=== PATIENT | male | born 1945 | race Caucasian/White ===

== ENCOUNTER 2021-07-08 12:36 | Observation (INO) | payer MEDICARE ==
[~2021-07-08] VITALS: Ht 180.3 cm; Wt 80.1 kg
[2021-07-08] VITALS (18 sets, daily range): BP systolic 88–153; BP diastolic 47–96
[2021-07-08 13:10] LABS: BASOPHILS % (AUTO) 0.5 % (0.0-5.0); EOSINOPHILS % (AUTO) 0.9 % (0.0-8.0); HEMATOCRIT 43.3 % (42-54); LYMPHOCYTES % (AUTO) 10.1 % (21.0-51.0); MEAN CORPUSCULAR HEMOGLOBIN 31.2 pg (27.0-33.0); MEAN CORPUSCULAR HGB CONC 33.5 g/dL (32.0-36.0); MEAN CORPUSCULAR VOLUME 93.1 fL (79-99); MONOCYTES % (AUTO) 8.4 % (3.0-13.0); NEUTROPHILS % (AUTO) 79.7 % (40.0-77.0); PLATELET COUNT (AUTO) 243 K/uL (130-400); RED BLOOD CELL COUNT(AUTO) 4.65 MIL/uL (4.50-6.20); RED CELL DISTRIBUTION WIDTH 12.7 % (11.0-15.5); WHITE BLOOD COUNT (AUTO) 10.5 K/uL (4.8-10.8)
[2021-07-08 13:17] LABS: POTASSIUM 4.3 mmol/L (3.5-5.1)
[2021-07-08 13:26] LABS: ALBUMIN 4.1 g/dL (3.5-5.0); BILIRUBIN,TOTAL 0.6 mg/dL (0.2-1.0)
[2021-07-08] MEDS ORDERED: GLUCAGON 1MG KIT 1 MG ML IV SCH ×2 (13:30→15:30)
[2021-07-08] MEDS ORDERED: GLUCAGON 1MG KIT 1 MG ML ONE (13:45)
[2021-07-08] MEDS ORDERED: ACETAMINOPHEN 325 MG TAB PO PRN (14:00)
[2021-07-08] MEDS ORDERED: HYDRALAZINE 20MG/ML VIAL IV PRN (14:00)
[2021-07-08] MEDS ORDERED: LABETALOL 20MG SYG IV PRN (14:00)
[2021-07-08] MEDS ORDERED: LACTULOSE 20 GM/30 ML UDCUP PO PRN (14:00)
[2021-07-08] MEDS ORDERED: GLUCAGON 1MG KIT 1 MG ML IM SCH ×2 (14:00)
[2021-07-08] MEDS ORDERED: ONDANSETRON 4MG INJ IVP PRN (14:00)
[2021-07-08] MEDS: INSULIN HUMULIN R 100 UNIT/ML 3ML SQ SCH ×2 (16:30→21:00)
[2021-07-08] MEDS ORDERED: LIDOCAINE PF 100MG/5ML (2%) SYRINGE 5ML ONE (17:23)
[2021-07-08] MEDS ORDERED: SUCCINYLCHOLINE CHLORIDE 20 MG/ML 10 ML VIAL ONE (17:23)
[2021-07-08] MEDS ORDERED: PROPOFOL 10 MG/ML 20ML VIAL IV ONE (17:23)
[2021-07-08] MEDS ORDERED: GLYCOPYRROLATE 1 MG/5 ML SYRINGE ONE (17:24)
[2021-07-08] MEDS ORDERED: DEXAMETHASONE SOD PHOSPHATE 10MG/ML 1ML VIAL ONE (17:24)
[2021-07-08] MEDS ORDERED: FENTANYL CITRATE PF 50 MCG/1 ML 2ML VIAL ONE (17:24)
[2021-07-08] MEDS ORDERED: ONDANSETRON 4MG INJ ONE (17:24)
[2021-07-08] MEDS ORDERED: ROCURONIUM 10MG/1ML SYR 10 MG/ML ML ONE (17:24)
[2021-07-08] MEDS ORDERED: NEOSTIGMINE 5MG/5ML SYR IV ONE (17:24)
[2021-07-08] MEDS ORDERED: MIDAZOLAM HCL 1 MG/ML 2ML VIAL ONE (17:24)
[2021-07-09 04:19] VITALS: BP 119/58
[2021-07-09 04:37] LABS: BASOPHILS % (AUTO) 0.1 % (0.0-5.0); HEMATOCRIT 42.4 % (42-54); LYMPHOCYTES % (AUTO) 8.6 % (21.0-51.0); MEAN CORPUSCULAR HEMOGLOBIN 31.1 pg (27.0-33.0); MEAN CORPUSCULAR VOLUME 91.6 fL (79-99); MONOCYTES % (AUTO) 2.3 % (3.0-13.0); NEUTROPHILS % (AUTO) 88.1 % (40.0-77.0); PLATELET COUNT (AUTO) 267 K/uL (130-400); RED BLOOD CELL COUNT(AUTO) 4.63 MIL/uL (4.50-6.20); RED CELL DISTRIBUTION WIDTH 12.6 % (11.0-15.5); WHITE BLOOD COUNT (AUTO) 9.2 K/uL (4.8-10.8)
[2021-07-09 04:55] LABS: CREATININE 1.1 mg/dL (0.5-1.5); MAGNESIUM 1.9 mg/dL (1.80-2.40); PHOSPHORUS 4.8 mg/dL (2.5-4.9); POTASSIUM 4.4 mmol/L (3.5-5.1)
[2021-07-09] MEDS: INSULIN HUMULIN R 100 UNIT/ML 3ML SQ SCH ×2 (07:30→12:12)
[2021-07-09 08:00] VITALS: BP 130/71
[2021-07-09] MEDS ORDERED: PANTOPRAZOLE 40 MG TAB DR PO SCH (09:00)
[2021-07-09 12:00] VITALS: BP 151/72
[2021-07-09 16:00] VITALS: BP 135/62
== END 2021-07-09 18:00 | disposition home or self-care (01) ==
LOC: EDH 12:36 → EDHIP 13:45 → 3DH 16:42
PROVIDERS: ADMIT Internal Medicine Critical Care Medicine; ATTEND Internal Medicine Critical Care Medicine
DX: T18.108A Unspecified foreign body in esophagus causing other injury, initial encounter (principal); Z20.822 Contact with and (suspected) exposure to COVID-19; R13.10 Dysphagia, unspecified; E11.9 Type 2 diabetes mellitus without complications; K22.2 Esophageal obstruction; T17.208A Unspecified foreign body in pharynx causing other injury, initial encounter; I10 Essential (primary) hypertension; E78.00 Pure hypercholesterolemia, unspecified; E03.9 Hypothyroidism, unspecified; Z79.899 Other long term (current) drug therapy; Z98.890 Other specified postprocedural states; Z79.4 Long term (current) use of insulin
CPT/HCPCS: 36415 ×2; 43247; 43249; 71045; 80048; 80053; 82948 ×4; 83735; 84100; 84484; 85025 ×2; 87635; 99284; A4222; A4223; A4606; A7002; G0378 ×26; J0330; J1100; J1610; J1815; J2001; J2250; J2405; J2704; J2710; J3010; J3490

== ENCOUNTER → 2022-02-18 | Outpatient (CLI) | payer MEDICARE | END | disposition home or self-care (01) | LOC: SHCH 13:04 | PROVIDERS: ATTEND Student in an Organized Health Care Education/Training Program | DX: I08.8 Other rheumatic multiple valve diseases (principal); I11.9 Hypertensive heart disease without heart failure; I77.810 Thoracic aortic ectasia; I25.10 Atherosclerotic heart disease of native coronary artery without angina pectoris; E11.9 Type 2 diabetes mellitus without complications; E78.5 Hyperlipidemia, unspecified | CPT/HCPCS: 93306 ==

== ENCOUNTER 2022-05-20 10:30 | Observation (INO) | payer MEDICARE ==
[~2022-05-20] VITALS: Ht 180.3 cm; Wt 74.1 kg
[2022-06-08 10:38] VITALS: BP 143/63
[2022-06-08 10:49] LABS: BASOPHILS % (AUTO) 0.5 % (0.0-5.0); EOSINOPHILS % (AUTO) 2.9 % (0.0-8.0); HEMATOCRIT 38.6 % (42-54); MEAN CORPUSCULAR HEMOGLOBIN 30.1 pg (27.0-33.0); MEAN CORPUSCULAR HGB CONC 31.9 g/dL (32.0-36.0); MEAN CORPUSCULAR VOLUME 94.6 fL (79-99); MONOCYTES % (AUTO) 10.3 % (3.0-13.0); PLATELET COUNT (AUTO) 219 K/uL (130-400); RED BLOOD CELL COUNT(AUTO) 4.08 MIL/uL (4.50-6.20); WHITE BLOOD COUNT (AUTO) 7.6 K/uL (4.8-10.8)
[2022-06-08] MEDS ORDERED: CARB1TAB38 PO (11:09)
[2022-06-08] MEDS ORDERED: LISI20TA24 PO (11:09)
[2022-06-08] MEDS ORDERED: GABA600T10 PO (11:09)
[2022-06-08] MEDS ORDERED: ACET1TAB97 PO (11:09)
[2022-06-08] MEDS ORDERED: METF-446 PO (11:09)
[2022-06-08] MEDS ORDERED: LEVO25TA54 PO (11:09)
[2022-06-08] MEDS ORDERED: ROSU20TA31 PO (11:09)
[2022-06-08 11:13] LABS: CREATININE 0.9 mg/dL (0.5-1.5); POTASSIUM 4.1 mmol/L (3.5-5.1)
[2022-06-09] VITALS (31 sets, daily range): BP systolic 115–172; BP diastolic 50–83
[2022-06-09] MEDS ORDERED: CEFAZOLIN SODIUM 1 GM VIAL ONE ×2 (04:57→11:04)
[2022-06-09] MEDS ORDERED: THROMBIN-JMI 20000 UNIT KIT TP ONE (04:57)
[2022-06-09] MEDS ORDERED: MORPHINE PF 100MG/10ML AMP IV ONE (04:57)
[2022-06-09] MEDS ORDERED: 0.9%NACL 1000ML 1,000 ML IV ONE (05:54)
[2022-06-09] MEDS: CEFAZOLIN SODIUM 1 GM VIAL IVPB SCH ×2 (06:00→08:00)
[2022-06-09] MEDS ORDERED: SUCCINYLCHOLINE CHLORIDE 20 MG/ML 10 ML VIAL ONE (06:52)
[2022-06-09] MEDS ORDERED: LIDOCAINE PF 100MG/5ML (2%) SYRINGE 5ML ONE (06:52)
[2022-06-09] MEDS ORDERED: NEOSTIGMINE 5MG/5ML SYR IV ONE (06:53)
[2022-06-09] MEDS ORDERED: DEXAMETHASONE SOD PHOSPHATE 10MG/ML 1ML VIAL ONE ×2 (06:53→06:55)
[2022-06-09] MEDS ORDERED: PROPOFOL 10 MG/ML 20ML VIAL IV ONE (06:53)
[2022-06-09] MEDS ORDERED: ONDANSETRON 4MG INJ ONE (06:53)
[2022-06-09] MEDS ORDERED: ROCURONIUM 10MG/1ML SYR 10 MG/ML ML ONE (06:53)
[2022-06-09] MEDS ORDERED: GLYCOPYRROLATE 1 MG/5 ML SYRINGE ONE (06:53)
[2022-06-09] MEDS ORDERED: MIDAZOLAM HCL 1 MG/ML 2ML VIAL ONE (06:53)
[2022-06-09] MEDS ORDERED: FENTANYL CITRATE PF 50 MCG/1 ML 2ML VIAL ONE ×2 (06:54→08:12)
[2022-06-09] MEDS ORDERED: BUPIVACAINE/EPI/PF 0.25% 30ML VIAL IJ SCH (07:30)
[2022-06-09] MEDS ORDERED: ARTIFICIAL TEARS 3.5 GM OINTMENT ONE (08:12)
[2022-06-09] MEDS ORDERED: ATROPINE 1MG SYG IVP ONE (08:44)
[2022-06-09] MEDS ORDERED: MORPHINE 2 MG SYG IVP PRN (12:00)
[2022-06-09] MEDS ORDERED: 0.9%NACL 10ML VIAL IVP PRN (12:00)
[2022-06-09] MEDS ORDERED: ACETAMINOPHEN WITH CODEINE 1 TAB TAB PO PRN (12:00)
[2022-06-09] MEDS: CEFAZOLIN SODIUM 1 GM VIAL IVP SCH ×2 (12:00→23:16)
[2022-06-09] MEDS ORDERED: PROMETHAZINE HCL 25 MG/ML 1ML AMPULE IM PRN (12:00)
[2022-06-09] MEDS ORDERED: HYDROCODONE/ACETAMINOPHEN 5/325 MG TAB PO PRN (12:00)
[2022-06-09] MEDS ORDERED: MEPERIDINE-PF 25 MG/ML SYG ONE (12:45)
[2022-06-09] MEDS: LACTATED RINGERS 1000ML 1,000 ML IV SCH (14:29)
[2022-06-09] MEDS: DEXAMETHASONE SOD PHOSPHATE 4 MG/ML 1ML VIAL IVP SCH ×3 (15:09→23:13)
[2022-06-09] MEDS: GABAPENTIN 300 MG CAPSULE PO SCH ×2 (16:39→23:13)
[2022-06-09] MEDS: METFORMIN HCL 500 MG TABLET PO SCH (16:39)
[2022-06-09] MEDS ORDERED: ATORVASTATIN 40 MG TABLET PO SCH (21:00)
[2022-06-09] MEDS ORDERED: NON-FORMULARY MEDICATION 1 EACH (Metformin HCl 1,000 MG) PO SCH (21:00)
[2022-06-09] MEDS ORDERED: LISINOPRIL 20 MG TABLET PO SCH (21:00)
[2022-06-09] MEDS ORDERED: LEVOTHYROXINE 25 MCG TABLET PO SCH (21:00)
[2022-06-09] MEDS: CARBIDOPA-LEVODOPA 25-100 TAB PO SCH (23:13)
[2022-06-10] VITALS: BP 115/44
[2022-06-10] MEDS: LACTATED RINGERS 1000ML 1,000 ML IV SCH (01:20)
[2022-06-10 04:00] VITALS: BP 131/58
[2022-06-10] MEDS: CARBIDOPA-LEVODOPA 25-100 TAB PO SCH ×2 (06:28→08:53)
[2022-06-10] MEDS: DEXAMETHASONE SOD PHOSPHATE 4 MG/ML 1ML VIAL IVP SCH (06:28)
[2022-06-10] MEDS ORDERED: LEVOTHYROXINE 25 MCG TABLET PO SCH (06:30)
[2022-06-10 08:00] VITALS: BP 146/49
[2022-06-10] MEDS: METFORMIN HCL 500 MG TABLET PO SCH (08:53)
[2022-06-10] MEDS: GABAPENTIN 300 MG CAPSULE PO SCH (08:53)
[2022-06-10] MEDS ORDERED: KETO10 PO (09:22)
== END 2022-06-10 10:00 | disposition home or self-care (01) ==
LOC: EDSTATUS 06-08 10:30 → DAHIP 06-09 05:44 → 4DH 06-09 13:50
PROVIDERS: ADMIT Neurological Surgery; ATTEND Neurological Surgery
DX: M48.062 Spinal stenosis, lumbar region with neurogenic claudication (principal); Z20.822 Contact with and (suspected) exposure to COVID-19; I10 Essential (primary) hypertension; I25.10 Atherosclerotic heart disease of native coronary artery without angina pectoris; E11.9 Type 2 diabetes mellitus without complications; M67.48 Ganglion, other site; E78.5 Hyperlipidemia, unspecified; K22.2 Esophageal obstruction; Z79.4 Long term (current) use of insulin; Z79.899 Other long term (current) drug therapy; Z98.890 Other specified postprocedural states
CPT/HCPCS: 80048; 85025; 87426; 36415; 71045; 63047; 63048 ×2; 96374; 96376 ×2; 96375; 82948 ×4; 72020; J1100 ×3; A6260; G0378 ×22; G0379; A4663; J7120 ×2; A4344; J3010 ×2; J0690 ×4; J3490 ×2; J2710; J0330; J7030; J2001; J0461; J2250; J2704; J2274; J2405; J2175; A4649 ×2; A4215; A4223; A4222; A4221; A4600; A4510

== ENCOUNTER → 2024-01-04 | Outpatient (CLI) | payer MEDICARE ==
[~2024-01-04] MED LIST: ACET1TAB97 PO; CARB1TAB38 PO; GABA-1405 PO; KETO10 PO; LEVO25TA54 PO; LISI20TA24 PO; METF-446 PO; ROSU20TA98 PO
[2024-01-04 12:52] LABS: CHOLESTEROL 158 mg/dL (<200); HDL CHOLESTEROL 72 mg/dL (29-71); LDL DIRECT 74 mg/dL (0-99); TRIGLYCERIDES 82 mg/dL (30-200)
== END | disposition home or self-care (01) ==
LOC: LAB 08:05
PROVIDERS: ATTEND Student in an Organized Health Care Education/Training Program
DX: E78.2 Mixed hyperlipidemia (principal)
CPT/HCPCS: 36415; 80061